=== PATIENT | male | born 1995 | race Caucasian/White ===

== ENCOUNTER 2017-10-30 01:52 | Emergency (ER) | payer OTHER ==
[~2017-10-30] VITALS: Ht 172.7 cm; Wt 69.8 kg
[~2017-10-30 01:52] MED LIST: CLIN-100 PO; CYCL-1 PO; DOXY-257 PO; HYDR-565 PO; HYDR-569 PO; LIDO20SO16 PO; METH500T PO; MUPI22OI TP; NO HOME MEDS; VALA10002 PO
[2017-10-30] MEDS ORDERED: CEPH500C5 PO (02:32)
[2017-10-30] MEDS ORDERED: SULF1TAB49 PO (02:32)
[2017-10-30] MEDS: sulfamethoxazole/trimethoprim DS (800/160mg) tablet PO ONE (02:33)
[2017-10-30] MEDS: cephalexin 500mg capsule PO ONE (02:33)
[2017-10-30 02:52] VITALS: BP 149/77
== END 2017-10-30 02:54 | disposition home or self-care (01) ==
LOC: ER 01:52
DX: L03.113 Cellulitis of right upper limb (principal); F12.90 Cannabis use, unspecified, uncomplicated; F15.90 Other stimulant use, unspecified, uncomplicated; Z56.0 Unemployment, unspecified; Z79.899 Other long term (current) drug therapy
CPT/HCPCS: 99284

== ENCOUNTER 2018-07-10 09:41 | Emergency (ER) | payer MEDICAID ==
[~2018-07-10] VITALS: Ht 170.2 cm; Wt 73.0 kg
[~2018-07-10 09:41] MED LIST changes: +CEPH500C5 PO; +HYDR-4353 PO; +HYDR-4383 PO; -HYDR-565 PO; -HYDR-569 PO
[2018-07-10 09:48] VITALS: BP 131/83
[2018-07-10] MEDS ORDERED: SULF1TAB49 PO (10:32)
== END 2018-07-10 10:57 | disposition home or self-care (01) ==
LOC: ER 09:41
DX: L03.211 Cellulitis of face (principal); F12.90 Cannabis use, unspecified, uncomplicated; F15.90 Other stimulant use, unspecified, uncomplicated; F11.90 Opioid use, unspecified, uncomplicated; Z79.2 Long term (current) use of antibiotics; Z79.899 Other long term (current) drug therapy; Z56.0 Unemployment, unspecified
CPT/HCPCS: 99283

== ENCOUNTER 2018-08-07 08:30 | Emergency (ER) | payer MEDICAID ==
[~2018-08-07] VITALS: Ht 170.2 cm; Wt 75.0 kg
[~2018-08-07 08:30] MED LIST changes: +CLIN300C54 PO
[2018-08-07 08:43] VITALS: BP 115/75
== END 2018-08-07 10:03 | disposition home or self-care (01) ==
LOC: ER 08:31
DX: L02.511 Cutaneous abscess of right hand (principal); L03.113 Cellulitis of right upper limb; F12.10 Cannabis abuse, uncomplicated; F15.10 Other stimulant abuse, uncomplicated; F11.10 Opioid abuse, uncomplicated; Z02.79 Encounter for issue of other medical certificate; Z56.0 Unemployment, unspecified; Z79.899 Other long term (current) drug therapy
CPT/HCPCS: 87070; 87077; 87186; 99284

== ENCOUNTER 2020-09-11 07:45 | Emergency (ER) | payer MEDICAID ==
[~2020-09-11] VITALS: Ht 170.2 cm; Wt 66.4 kg
[~2020-09-11 07:45] MED LIST changes: -CEPH500C5 PO; -CLIN-100 PO; +CLIN-142 PO; -CLIN300C54 PO; -DOXY-257 PO; +DOXY-327 PO
[2020-09-11 07:58] VITALS: BP 126/71
== END 2020-09-11 08:55 | disposition home or self-care (01) ==
LOC: ER 07:47
DX: M79.641 Pain in right hand (principal); F12.90 Cannabis use, unspecified, uncomplicated; F15.90 Other stimulant use, unspecified, uncomplicated; F11.90 Opioid use, unspecified, uncomplicated; Z72.89 Other problems related to lifestyle; Z56.0 Unemployment, unspecified; Z79.2 Long term (current) use of antibiotics; Z79.899 Other long term (current) drug therapy
CPT/HCPCS: 73130; 99283

== ENCOUNTER 2021-11-15 18:58 | Emergency (ER) | payer MEDICAID ==
[~2021-11-15] VITALS: Ht 170.2 cm; Wt 72.0 kg
[2021-11-15 19:02] VITALS: BP 135/60
== END 2021-11-15 21:37 | disposition left against medical advice (07) ==
LOC: ER 18:59
DX: R10.9 Unspecified abdominal pain (principal); Z53.21 Procedure and treatment not carried out due to patient leaving prior to being seen by health care provider

== ENCOUNTER 2021-12-01 22:26 | Emergency (ER) | payer MEDICAID ==
[~2021-12-01] VITALS: Ht 170.2 cm; Wt 73.1 kg
[2021-12-01 22:33] VITALS: BP 135/77
[2021-12-01] MEDS ORDERED: sulfamethoxazole/trimethoprim DS (800/160mg) tablet PO ONE (23:25)
[2021-12-01] MEDS ORDERED: acetaminophen 325mg tablet PO ONE (23:25)
[2021-12-01] MEDS ORDERED: amox tr/potassium clavulanate 875/125mg TAB PO ONE (23:25)
[2021-12-01] MEDS ORDERED: AMOX-117 PO (23:31)
[2021-12-01] MEDS ORDERED: SULF1TAB45 PO (23:31)
[2021-12-01] MEDS ORDERED: IBUP-1984 PO (23:31)
== END 2021-12-01 23:43 | disposition home or self-care (01) ==
LOC: ER 22:27
DX: L03.113 Cellulitis of right upper limb (principal); F12.90 Cannabis use, unspecified, uncomplicated; F15.90 Other stimulant use, unspecified, uncomplicated; F11.90 Opioid use, unspecified, uncomplicated; Z72.89 Other problems related to lifestyle; Z56.0 Unemployment, unspecified; Z79.2 Long term (current) use of antibiotics; Z79.899 Other long term (current) drug therapy
CPT/HCPCS: 99284